=== PATIENT | female | born 1945 | race African-American/Black ===

== ENCOUNTER 2018-11-20 18:08 | Inpatient (IN) | payer MEDICARE, OTHER ==
[~2018-11-20] VITALS: Ht 162.6 cm; Wt 51.3 kg
[2018-11-20] MEDS ORDERED: ACCU-CHEK COMFORT CURVE STRIP VI ONE (19:45)
[2018-11-20] MEDS ORDERED: SODIUM CHLORIDE 0.9% 1,000 ML IV ONE (20:00)
[2018-11-20] MEDS ORDERED: InsuLIN REG 1unit/0.01ml Soln (100units/ml) IV ONE (20:00)
[2018-11-20 20:30] LABS: Hemoglobin 16.3 g/dL (12.2-16.2); Mean Corpuscular Hemoglobin 28.3 pg (28.0-32.0); Mean Corpuscular Hgb Conc. 32.6 g/dL (32.0-36.0); Mean Corpuscular Volume 86.6 fL (80.0-100.0); Red Blood Cells 5.77 10^6/uL (4.0-5.20); Red Cell Distribution Width 14.5 % (11.8-14.3); White Blood Cell 29.2 10^3/uL (4.4-10.8)
[2018-11-20 20:31] LABS: Basophils % (manual) 0 (0.0-2.0); Blast Cells 0; Eosinophils % (manual) 0 (0-7); Metamyelocytes % 0; Myelocytes % 0; Promyelocytes % 0; Reactive Lymphocytes 0
[2018-11-20 20:38] LABS: INR < 0.93 (0.9-1.15); Partial Thromboplastin Time 27.9 sec (23.64-32.05)
[2018-11-20 20:40] LABS: Albumin 4.2 g/dL (3.4-5.0); Anion Gap 31 (5-15); Blood Urea Nitrogen 29 mg/dL (7-18); Calcium 9.2 mg/dL (8.5-10.1); Chloride 85 mmol/L (98-107); Potassium 4.8 mmol/L (3.5-5.1); Sodium 123 mmol/L (136-145)
[2018-11-20 20:41] LABS: Band Neutrophils % (manual) 5; Lymphocytes % (manual) 9 (10.0-50.0); Monocytes % (manual) 7 (0-12)
[2018-11-20 20:42] LABS: Platelet Count (auto) 475 10^3/uL (140-450)
[2018-11-20 20:45] LABS: Lactic Acid w/Reflex 2.7 mmol/L (0.4-2.0)
[2018-11-20 20:48] LABS: Alkaline Phosphatase 231 U/L (45-117)
[2018-11-20 20:51] LABS: Alanine Aminotransferase 18 U/L (13-56); Aspartate Aminotransferase 14 U/L (15-37); BUN/Creatinine Ratio 13.6; Bilirubin, Total 0.5 mg/dL (0.2-1.0); GFR African American 29 mL/min; GFR Non-African American 24 mL/min; Total Protein 10.1 g/dL (6.4-8.2)
[2018-11-20 20:54] LABS: Carbon Dioxide 7 mmol/L (21-32); Glucose 835 mg/dL (74-106)
[2018-11-20] MEDS ORDERED: SODIUM CHLORIDE 0.9% 1,000 ML IV SCH (21:10)
[2018-11-20] MEDS ORDERED: SOD CHL 0.9%/ KCL 20MEQ 1,000 ML IV SCH (21:10)
[2018-11-20] MEDS ORDERED: InsuLIN R (HUMAN) 100 UNITS in SODIUM CHL 0.9% 99 ML IV SCH (21:10)
[2018-11-20] MEDS ORDERED: MAGNESIUM SULFATE 1GM/100ML 200 ML IV ONE (21:15)
[2018-11-20] MEDS ORDERED: cefTRIAXone 1GM/50ML D5W 50 ML IV ONE (21:30)
[2018-11-20] MEDS ORDERED: SODIUM BICARBONATE 8.4 % INJ 50ML VIAL IV ONE ×2 (21:45→23:30)
[2018-11-20] MEDS ORDERED: MORPHINE SULF INJ 2 MG/ML SYRINGE 1ML IV PRN (22:15)
[2018-11-20] MEDS ORDERED: LEVOFLOXACIN 250MG 50 ML IV ONE (22:15)
[2018-11-20] MEDS ORDERED: HYDROcodone-ACET 5/325MG TAB PO PRN (22:15)
[2018-11-20] MEDS ORDERED: DEXTROSE (50%) 50ML SYRG IV PRN (22:15)
[2018-11-20] MEDS ORDERED: ACETAMINOPHEN 325 MG TAB PO PRN (22:15)
[2018-11-20] MEDS ORDERED: NITROGLYCERIN 0.4 MG SL TAB SL PRN (22:15)
[2018-11-20 22:29] LABS: Magnesium 2.5 mg/dL (1.6-2.6); Phosphorus 5.5 mg/dL (2.5-4.90)
[2018-11-20] MEDS ORDERED: LORazepam 2MG/ML-1ML VIAL IV ONE (22:30)
[2018-11-20] MEDS ORDERED: HYDROmorphone HCL 2 MG/ML VL IV ONE (22:30)
[2018-11-20 22:34] LABS: Alcohol, Urine < 3.0 mg/dL (0-5); Amphetamine Screen, Urine NEGATIVE (NEGATIVE); Benzodiazephine Screen, Urine NEGATIVE (NEGATIVE); Cannabinoid Screen, Urine POSITIVE (NEGATIVE); Cocaine Screen, Urine NEGATIVE (NEGATIVE); Opiate Scree,Urine NEGATIVE (NEGATIVE); Phencyclidine Screen, Urine NEGATIVE (NEGATIVE)
[2018-11-20] MEDS: InsuLIN R (HUMAN) 100 UNITS in SODIUM CHL 0.9% 99 ML IV SCH (22:38)
[2018-11-20 22:41] LABS: Urine Bacteria NONE SEEN /hpf (None Seen); Urine Blood 2+ /uL (Negative); Urine Specific Gravity 1.021 (1.001-1.035); Urine WBC 225 /hpf (0 - 5)
[2018-11-20 22:50] LABS: Barbiturate Scree,Urine NEGATIVE (NEGATIVE)
[2018-11-20 22:56] LABS: BUN/Creatinine Ratio 16.9; Calcium 9.6 mg/dL (8.5-10.1)
[2018-11-20] MEDS: SODIUM CHLORIDE 0.9% 1,000 ML IV SCH (23:10)
[2018-11-21] MEDS: SODIUM CHLORIDE 0.9% 1,000 ML IV SCH (00:12)
[2018-11-21] MEDS ORDERED: ONDANSETRON HCL 4 MG/2 ML VIAL IV PRN (01:00)
[2018-11-21] MEDS ORDERED: SODIUM CHLORIDE 0.9% 1,000 ML IV SCH ×2 (02:12→04:12)
[2018-11-21] MEDS: InsuLIN R (HUMAN) 100 UNITS in SODIUM CHL 0.9% 99 ML IV SCH ×2 (03:18→05:52)
[2018-11-21] MEDS ORDERED: diphenhdrAMINE HCL 50 MG/1 ML VL IV ONE (03:30)
[2018-11-21] MEDS ORDERED: HALOPERIDOL LACTATE 5 MG/ML INJ VIAL IM ONE (03:30)
[2018-11-21] MEDS ORDERED: LORazepam 2MG/ML-1ML VIAL IV ONE (03:30)
[2018-11-21] MEDS ORDERED: SODIUM BICARBONATE 8.4 % INJ 50ML VIAL IV ONE (04:15)
[2018-11-21] MEDS ORDERED: SODIUM CHLORIDE 0.9% 500 ML IV ONE (07:30)
[2018-11-21] MEDS ORDERED: ACCU-CHEK COMFORT CURVE STRIP VI SCH (08:00)
[2018-11-21] MEDS ORDERED: DEXTROSE (50%) 50ML SYRG IV PRN ×2 (08:00→17:30)
[2018-11-21] MEDS: ACCU-CHEK COMFORT CURVE STRIP VI SCH ×6 (08:15→20:40)
[2018-11-21] MEDS: D5W/SOD CHL 0.45%/KCL 20MEQ 1,000 ML IV SCH ×3 (08:47→17:30)
[2018-11-21 08:56] LABS: Hemoglobin 13.5 g/dL (12.2-16.2); Mean Corpuscular Hemoglobin 27.9 pg (28.0-32.0); Mean Corpuscular Hgb Conc. 35.5 g/dL (32.0-36.0); Mean Corpuscular Volume 78.5 fL (80.0-100.0); Platelet Count (auto) 348 10^3/uL (140-450); Red Blood Cells 4.84 10^6/uL (4.0-5.20); Red Cell Distribution Width 13.6 % (11.8-14.3); White Blood Cell 19.3 10^3/uL (4.4-10.8)
[2018-11-21 09:04] LABS: Basophils % (manual) 0 (0.0-2.0); Blast Cells 0; Eosinophils % (manual) 0 (0-7); Metamyelocytes % 0; Myelocytes % 0; Promyelocytes % 0; Reactive Lymphocytes 0
[2018-11-21 09:12] LABS: Albumin 3.2 g/dL (3.4-5.0); BUN/Creatinine Ratio 18.4; Potassium 3.2 mmol/L (3.5-5.1)
[2018-11-21 09:27] LABS: Bilirubin, Total 0.4 mg/dL (0.2-1.0); Total Protein 7.5 g/dL (6.4-8.2)
[2018-11-21 13:25] LABS: BUN/Creatinine Ratio 18.2; Calcium 8.9 mg/dL (8.5-10.1); Potassium 3.6 mmol/L (3.5-5.1)
[2018-11-21] MEDS: PANTOPRAZOLE 40 MG TAB PO SCH (14:56)
[2018-11-21 15:19] LABS: Band Neutrophils % (manual) 3; Lymphocytes % (manual) 18 (10.0-50.0); Monocytes % (manual) 8 (0-12)
[2018-11-21 17:00] LABS: BUN/Creatinine Ratio 16.5; Calcium 8.7 mg/dL (8.5-10.1); Potassium 3.5 mmol/L (3.5-5.1)
[2018-11-21] MEDS ORDERED: INSULIN LANTUS (GLARGINE) 1 /0.01ml (100units/ml) SC ONE (17:30)
--- NOTE | 2018-11-21 20:30 | NUR ---
Telemetry admit from ER [facility] admitted to Telemetry unit after SBAR received. Patient oriented to Lakesha Vazquez, primary RN, unit, room, bed, and unit policies regarding patient care and visiting hours. Patient now on continuous telemetry monitoring, tele box # 17 and telemetry reading on arrival to unit is sinus tachycardia. Patient placed on bedside oxygen, weighed by bedscale and encouraged to call if they need something. All questions and concerns addressed, patient verbalized understanding.
[2018-11-21 20:40] VITALS: BP 108/68
[2018-11-21 20:45] VITALS: BP 108/66
[2018-11-21] MEDS: LEVOFLOXACIN 500MG 100 ML IV SCH (20:45)
[2018-11-21] MEDS: InsuLIN REG 1unit/0.01ml Soln (100units/ml) SC SCH (20:45)
[2018-11-21] MEDS ORDERED: LEVOFLOXACIN 250MG 50 ML IV SCH (21:00)
[2018-11-21] MEDS ORDERED: INSULIN LANTUS (GLARGINE) 1 /0.01ml (100units/ml) SC SCH (22:00)
[2018-11-21] MEDS: INSULIN LANTUS (GLARGINE) 1 /0.01ml (100units/ml) SC SCH (22:01)
[2018-11-21] MEDS: TEMAZEPAM 15 MG CAP PO PRN (22:29)
[2018-11-22] MEDS: InsuLIN REG 1unit/0.01ml Soln (100units/ml) SC SCH ×7 (00:09→22:00)
[2018-11-22] MEDS: ACCU-CHEK COMFORT CURVE STRIP VI SCH ×7 (00:09→22:02)
[2018-11-22] MEDS: DOCUSATE SOD 100 MG CAP PO PRN (00:10)
[2018-11-22 05:28] VITALS: BP 111/74
[2018-11-22] MEDS: D5W/SOD CHL 0.45%/KCL 20MEQ 1,000 ML IV SCH (06:50)
[2018-11-22] MEDS: INSULIN LANTUS (GLARGINE) 1 /0.01ml (100units/ml) SC SCH ×2 (06:50→22:02)
--- NOTE | 2018-11-22 07:10 | NUR ---
Care endorsed to Summer BLANCA.
[2018-11-22 07:13] LABS: Basophils # (auto) 0 uL; Basophils % (auto) 0.3 % (0.0-2.0); Eosinophils # (auto) 0.1 uL; Eosinophils % (auto) 0.3 % (0.0-7.0); Hematocrit 38.2 % (36.0-46.0); Hemoglobin 12.9 g/dL (12.2-16.2); Lymphocytes # (auto) 2.4 uL; Lymphocytes % (auto) 14.5 % (10.0-50.0); Mean Corpuscular Hemoglobin 28.3 pg (28.0-32.0); Mean Corpuscular Hgb Conc. 33.7 g/dL (32.0-36.0); Mean Corpuscular Volume 83.9 fL (80.0-100.0); Monocytes # (auto) 1.5 uL; Monocytes % (auto) 9.1 % (0.0-12.0); Neutrophils # (auto) 12.5 uL; Neutrophils % (auto) 75.8 % (37.0-80.0); Nucleated Red Blood Cells % 0.1 %; Platelet Count (auto) 290 10^3/uL (140-450); Red Blood Cells 4.56 10^6/uL (4.0-5.20); Red Cell Distribution Width 14.2 % (11.8-14.3); White Blood Cell 16.6 10^3/uL (4.4-10.8)
--- NOTE | 2018-11-22 07:25 | NUR ---
Opening Note Received report from manufacturing shift supervisor RN. Patient is resting in bed with eyes closed, easy to wake by calling name. Patient is alert and oriented x4. No signs or symptoms of distress noted at this time. Reviewed plan of care with patient, patient verbalized understanding. Bed in low and locked position, call light within reach. Will continue to monitor Q1 hour and PRN.
--- NOTE | 2018-11-22 08:25 | NUR ---
Urine sample collected and sent to lab
[2018-11-22 09:00] VITALS: BP 98/52
[2018-11-22 10:03] LABS: Potassium 3.4 mmol/L (3.5-5.1)
[2018-11-22 10:07] LABS: BUN/Creatinine Ratio 9.7
--- NOTE | 2018-11-22 10:27 | NUR ---
patient moved to room 298A
[2018-11-22] MEDS: PANTOPRAZOLE 40 MG TAB PO SCH (10:39)
[2018-11-22 13:00] VITALS: BP 103/59
--- NOTE | 2018-11-22 14:31 | NUR ---
Abdominal pain Patient states she is having abdominal pain from constipation. Per the patient she has not had a bowel movement since 11/18. Patient has received Colace PRN. Patient states the medication is not working for her and she would like a different medication. Will notify .
--- NOTE | 2018-11-22 14:45 | NUR ---
PT DECLINED P.T. BECAUSE OF STOMACH PAIN.
--- NOTE | 2018-11-22 15:11 | NUR ---
Dr. Armstrong at bedside Dr. Armstrong at bedside reviewing plan of care with patient.
[2018-11-22] MEDS ORDERED: FLEET ENEMA(ADULT) 135 ML PR ONE (15:15)
[2018-11-22] MEDS ORDERED: LACTULOSE 20Gm/30ML SOLN PO ONE (15:15)
--- NOTE | 2018-11-22 16:22 | NUR ---
re-assessment Ss consult placement eval faxed to [facility] ph:[phone] fx: [phone] Per Bettie [facility] has accepted to room 60 B and accepting MD is Dr. La. If pt discharges on the weekend please call [facility] to set up transport ph: [phone] or [facility]. Pt agrees to discharge plan to [facility]. Addendum: 11/22/18 at 1622 by Tarsha KERR Amended: Links added.
[2018-11-22] MEDS ORDERED: DEXTROSE (50%) 50ML SYRG IV PRN (17:00)
[2018-11-22 17:44] VITALS: BP 105/57
--- NOTE | 2018-11-22 17:51 | NUR ---
library monitor discontinued per MD orders Telemetry box sent back to [facility].
--- NOTE | 2018-11-22 19:23 | NUR ---
Closing Note Report given to mine shifter RN. No signs or symptoms of distress noted at this time.
--- NOTE | 2018-11-22 20:00 | NUR ---
Opening Shift Note Assumed care of patient, awake and alert. No S/S of distress/SOB or pain. Instructed on POC and to call for assist PRN, will continue to monitor for changes Q1hr and PRN.Complaining of uncomfortable with her catheter and pain, so discontinue as patient request ,said she is alert to herself now.
[2018-11-22] MEDS: LEVOFLOXACIN 500MG 100 ML IV SCH (21:01)
[2018-11-22 22:00] VITALS: BP 127/72
[2018-11-23] MEDS: TEMAZEPAM 15 MG CAP PO PRN ×2 (00:52→22:41)
[2018-11-23 05:00] VITALS: BP 112/76
[2018-11-23 06:23] LABS: Basophils # (auto) 0.1 uL; Basophils % (auto) 0.5 % (0.0-2.0); Eosinophils # (auto) 0 uL; Eosinophils % (auto) 0.4 % (0.0-7.0); Hematocrit 35.1 % (36.0-46.0); Hemoglobin 12.3 g/dL (12.2-16.2); Lymphocytes # (auto) 2.1 uL; Lymphocytes % (auto) 18.5 % (10.0-50.0); Mean Corpuscular Hemoglobin 28.1 pg (28.0-32.0); Mean Corpuscular Hgb Conc. 35.1 g/dL (32.0-36.0); Mean Corpuscular Volume 80.1 fL (80.0-100.0); Monocytes # (auto) 1.1 uL; Monocytes % (auto) 10.1 % (0.0-12.0); Neutrophils # (auto) 7.9 uL; Neutrophils % (auto) 70.5 % (37.0-80.0); Platelet Count (auto) 277 10^3/uL (140-450); Red Blood Cells 4.38 10^6/uL (4.0-5.20); Red Cell Distribution Width 13.9 % (11.8-14.3); White Blood Cell 11.1 10^3/uL (4.4-10.8)
[2018-11-23 06:32] LABS: Potassium 3.4 mmol/L (3.5-5.1)
[2018-11-23] MEDS: INSULIN LANTUS (GLARGINE) 1 /0.01ml (100units/ml) SC SCH ×2 (06:34→21:53)
[2018-11-23] MEDS: InsuLIN REG 1unit/0.01ml Soln (100units/ml) SC SCH ×4 (06:34→21:58)
[2018-11-23] MEDS: ACCU-CHEK COMFORT CURVE STRIP VI SCH ×4 (06:34→21:51)
--- NOTE | 2018-11-23 07:17 | NUR ---
Report given to Nancy Spears, patient is resting no distress.
--- NOTE | 2018-11-23 07:30 | NUR ---
RECEIVED REPORT FROM NIGHT NURSE. PATIENT RESTING IN BED, NO DISTRESS NOTED. WILL CONTINUE TO MONITOR.
[2018-11-23 09:00] VITALS: BP 99/55
[2018-11-23 10:01] LABS: BUN/Creatinine Ratio 10.4
[2018-11-23 10:02] LABS: Magnesium 2.1 mg/dL (1.6-2.6)
[2018-11-23] MEDS: PANTOPRAZOLE 40 MG TAB PO SCH (10:19)
[2018-11-23 10:31] LABS: Phosphorus 1.5 mg/dL (2.5-4.90)
[2018-11-23 13:00] VITALS: BP 125/54
--- NOTE | 2018-11-23 15:30 | NUR ---
PATIENT'S GRANDDAUGHTER ALICIA AT BEDSIDE. SHE STATED THAT SHE WANTS THE PATIENT TO COME HOME UPON DISCHARGE AND THAT THEY HAVE A [employer] MACHINE OPERATOR AT HOME. SHE STATED THAT THEY MAY NEED PHYSICAL THERAPY WHEN SHE GOES HOME. THEY DO NOT WANT THE PATIENT TO GO TO A SNF. THE PATIENT DOES NOT WANT TO GO TO A SNF UPON DISCHARGE.
[2018-11-23 16:41] VITALS: BP 111/74
[2018-11-23] MEDS: POLYETHYLENE GLYCOL 17 GM PWDR PO PRN (16:54)
--- NOTE | 2018-11-23 20:00 | NUR ---
Opening Shift Note Assumed care of patient, awake and alert. No S/S of distress/SOB or pain. Instructed on POC and to call for assist PRN, will continue to monitor for changes Q1hr and PRN.
[2018-11-23 22:00] VITALS: BP 122/69
[2018-11-24 05:00] VITALS: BP 124/76
[2018-11-24] MEDS: DOCUSATE SOD 100 MG CAP PO PRN (05:33)
[2018-11-24] MEDS: POLYETHYLENE GLYCOL 17 GM PWDR PO PRN (06:08)
--- NOTE | 2018-11-24 06:08 | NUR ---
Given her miralax constipation med. early due to patient is mad and she is saying she needs to have a bowel movement, though she had a big couples of bowel movement the other night.
[2018-11-24] MEDS: ACCU-CHEK COMFORT CURVE STRIP VI SCH ×4 (06:53→21:47)
[2018-11-24] MEDS: INSULIN LANTUS (GLARGINE) 1 /0.01ml (100units/ml) SC SCH ×2 (06:54→21:48)
[2018-11-24] MEDS: InsuLIN REG 1unit/0.01ml Soln (100units/ml) SC SCH ×4 (06:54→21:48)
--- NOTE | 2018-11-24 07:20 | NUR ---
Report given to Nancy Spears, patient is resting no distress.
--- NOTE | 2018-11-24 07:30 | NUR ---
RECEIVED REPORT FROM NIGHT NURSE. PATIENT RESTING IN BED, NO DISTRESS NOTED. WILL CONTINUE TO MONITOR.
[2018-11-24 09:00] VITALS: BP 97/66
[2018-11-24] MEDS: PANTOPRAZOLE 40 MG TAB PO SCH (10:30)
[2018-11-24] MEDS: LEVOFLOXACIN 500 MG TAB PO SCH (10:30)
--- NOTE | 2018-11-24 12:21 | NUR ---
Pt reports having increased pain and discomfort to her abdomen, pt has c/o constipation, pt requesting to get out of bed to walk at a later time Addendum: 11/24/18 at 1221 by Liss Mccollum PT Amended: Links added.
[2018-11-24 13:00] VITALS: BP 91/60
[2018-11-24] MEDS ORDERED: LACTULOSE 20Gm/30ML SOLN PO ONE (14:30)
--- NOTE | 2018-11-24 14:50 | NUR ---
NUTRITION ASSESSMENT NOTES Please refer to link notes of nutrition screen form filed under the intervention section of the plan of care for further details. Est. Needs: 1550 kcal to 1850 kcal (25-30 kcal/kgBW), 62 gms to 75 gms pro (1.0-1.2 gms/kgBW). Will continue to monitor pertinent labs and reassess nutrient need prn Thank you. Addendum: 11/24/18 at [address] Amended: Links added.
[2018-11-24 17:03] VITALS: BP 106/62
--- NOTE | 2018-11-24 20:00 | NUR ---
Opening Shift Note Assumed care of patient, awake and alert. No S/S of distress/SOB or pain. Instructed on POC and to call for assist PRN, will continue to monitor for changes Q1hr and PRN.Chatting with her co-patient.
[2018-11-24] MEDS: TEMAZEPAM 15 MG CAP PO PRN (21:58)
[2018-11-24 22:00] VITALS: BP 111/70
[2018-11-25 05:00] VITALS: BP 103/61
[2018-11-25] MEDS: INSULIN LANTUS (GLARGINE) 1 /0.01ml (100units/ml) SC SCH (06:07)
[2018-11-25] MEDS: ACCU-CHEK COMFORT CURVE STRIP VI SCH ×3 (06:08→17:08)
[2018-11-25] MEDS: InsuLIN REG 1unit/0.01ml Soln (100units/ml) SC SCH ×3 (06:08→17:00)
--- NOTE | 2018-11-25 07:07 | NUR ---
Report given to Nancy Spears,patient is resting no distress the whole night.
--- NOTE | 2018-11-25 07:30 | NUR ---
RECEIVED REPORT FROM NIGHT NURSE. PATIENT RESTING IN BED, NO DISTRESS NOTED. WILL CONTINUE TO MONITOR.
[2018-11-25] MEDS: POLYETHYLENE GLYCOL 17 GM PWDR PO PRN (08:23)
[2018-11-25 09:00] VITALS: BP 122/72
[2018-11-25] MEDS ORDERED: FLUCONAZOLE 100 MG TAB PO ONE (11:00)
[2018-11-25] MEDS: LEVOFLOXACIN 500 MG TAB PO SCH (11:08)
[2018-11-25] MEDS: PANTOPRAZOLE 40 MG TAB PO SCH (11:09)
--- NOTE | 2018-11-25 11:40 | NUR ---
ACCU-CHECK 409 AND THEN 412. SPOKE WITH DOCTOR CRESPO, ORDERS RECEIVED, WILL CARRY OUT.
[2018-11-25] MEDS ORDERED: HYDROcodone-ACET 5/325MG TAB PO PRN (12:00)
[2018-11-25] MEDS ORDERED: INSULIN LANTUS (GLARGINE) 1 /0.01ml (100units/ml) SC ONE (12:00)
[2018-11-25 13:00] VITALS: BP 113/75
--- NOTE | 2018-11-25 15:09 | NUR ---
ACCU-CHECK RECHECK 172
--- NOTE | 2018-11-25 16:39 | NUR ---
re-assessment Patients discharge plan has changed. Patient now wants to go home with home health. I informed patient of home health order and she referred me to her granddaughter Lauren. I called Lauren and read her a list of medicare providers. Per Lauren she has no preference. consult for PT, vitals and safety and medications management faxed to [facility] ph: [phone] fx: [phone] per Leisa [facility] has been accepted and service to start tomorrow 11/26/18. Pt agrees to discharge plan with [facility]. Addendum: 11/25/18 at 1643 by Tarsha KERR Amended: Links added.
[2018-11-25 16:53] VITALS: BP 109/51
--- NOTE | 2018-11-25 17:30 | NUR ---
FEMORAL 3 LUMEN LINE REMOVED. CATHETER TIP INTACT, PRESSURE DRESSING APPLIED. PATIENT TOLERATED IT WELL.
--- NOTE | 2018-11-25 20:31 | NUR ---
Discharge instructions given as ordered. Encourage to follow up with PMD as instructed. All questions and concerns addressed. Patient verbalized understanding. Medication reconciliation form completed and copy given to patient. Telemetry unit returned to [facility]. Patient taken to vehicle via wheelchair with all personal belongings, accompanied by staff and family member. No distress noted at time of departure.
== END 2018-11-25 20:31 | disposition home health service (06) | DRG 871 ==
LOC: ER 18:08 → TELE 18:09 → TELE-WESTW 11-21 20:26 → WEST WING 11-22 16:52
PROVIDERS: ADMIT Nurse Practitioner; ATTEND Internal Medicine
PROC: 06HY33Z Insertion of Infusion Device into Lower Vein, Percutaneous Approach (ICD-10-PCS; principal; 2018-11-21)
DX: A41.9 Sepsis, unspecified organism (principal); E11.10 Type 2 diabetes mellitus with ketoacidosis without coma; N17.0 Acute kidney failure with tubular necrosis; N39.0 Urinary tract infection, site not specified; J98.11 Atelectasis; E87.1 Hypo-osmolality and hyponatremia; E86.0 Dehydration; I70.0 Atherosclerosis of aorta; K59.00 Constipation, unspecified; B37.3 Candidiasis of vulva and vagina; I10 Essential (primary) hypertension; J20.9 Acute bronchitis, unspecified; Z88.0 Allergy status to penicillin; Z86.73 Personal history of transient ischemic attack (TIA), and cerebral infarction without residual deficits; Z88.8 Allergy status to other drugs, medicaments and biological substances; Z91.19 Patient's noncompliance with other medical treatment and regimen; Z79.899 Other long term (current) drug therapy
CPT/HCPCS: 36415; 36600; 51702; 71045; 73501; 80048; 80053; 80307; 81001; 82010; 82805; 82962; 83036; 83605; 83735; 83880; 83930; 84100; 84443; 84484; 85007; 85025; 85027; 85610; 85730; 87040; 87086; 93005; 96361; 96365; 96366; 96372; 96375; G0378; J0696; J1815; J1956; J2405

== ENCOUNTER 2018-12-03 23:27 | Inpatient (IN) | payer MEDICARE, OTHER ==
[~2018-12-03] VITALS: Ht 172.7 cm; Wt 68.6 kg
[2018-12-04 00:31] LABS: Hematocrit 41.7 % (36.0-46.0); Hemoglobin 14.5 g/dL (12.2-16.2); Mean Corpuscular Hemoglobin 28.1 pg (28.0-32.0); Mean Corpuscular Hgb Conc. 34.7 g/dL (32.0-36.0); Mean Corpuscular Volume 80.9 fL (80.0-100.0); Red Blood Cells 5.15 10^6/uL (4.0-5.20); Red Cell Distribution Width 14.5 % (11.8-14.3)
[2018-12-04 00:34] LABS: Band Neutrophils % (manual) 0; Basophils % (manual) 0 (0.0-2.0); Blast Cells 0; Eosinophils % (manual) 0 (0-7); Metamyelocytes % 0; Myelocytes % 0; Promyelocytes % 0; Reactive Lymphocytes 0
[2018-12-04 00:40] LABS: Lymphocytes % (manual) 4 (10.0-50.0); Monocytes % (manual) 4 (0-12)
[2018-12-04 00:41] LABS: Albumin 4.1 g/dL (3.4-5.0); Anion Gap 26 (5-15); BUN/Creatinine Ratio 16.3; Blood Urea Nitrogen 34 mg/dL (7-18); Calcium 10.5 mg/dL (8.5-10.1); Carbon Dioxide 12 mmol/L (21-32); Chloride 95 mmol/L (98-107); GFR African American 30 mL/min; GFR Non-African American 25 mL/min; Glucose 283 mg/dL (74-106); Potassium 3.5 mmol/L (3.5-5.1); Sodium 133 mmol/L (136-145)
[2018-12-04 00:43] LABS: Platelet Count (auto) 773 10^3/uL (140-450)
[2018-12-04 00:48] LABS: Alanine Aminotransferase 14 U/L (13-56); Alkaline Phosphatase 147 U/L (45-117); Aspartate Aminotransferase 5 U/L (15-37); Bilirubin, Total 0.7 mg/dL (0.2-1.0); Total Protein 8.9 g/dL (6.4-8.2)
[2018-12-04 02:38] LABS: Lactic Acid w/Reflex 3.1 mmol/L (0.4-2.0)
[2018-12-04] MEDS ORDERED: cefTRIAXone 1GM/50ML D5W 50 ML IV ONE (03:45)
[2018-12-04] MEDS ORDERED: SODIUM CHLORIDE 0.9% 1,000 ML IV ONE ×2 (03:48→04:00)
[2018-12-04] MEDS ORDERED: ONDANSETRON HCL 4 MG/2 ML VIAL IV ONE (04:00)
[2018-12-04] MEDS ORDERED: LEVOFLOXACIN 500MG 100 ML IV ONE ×2 (04:00→06:30)
[2018-12-04] MEDS ORDERED: InsuLIN REG 1unit/0.01ml Soln (100units/ml) IV ONE (04:00)
[2018-12-04] MEDS ORDERED: MORPHINE SULF INJ 2 MG/ML SYRINGE 1ML IV ONE (04:00)
[2018-12-04 04:58] LABS: Urine Bacteria NONE SEEN /hpf (None Seen); Urine Blood 1+ /uL (Negative); Urine WBC 105 /hpf (0 - 5)
[2018-12-04] MEDS ORDERED: InsuLIN R (HUMAN) 100 UNITS in SODIUM CHL 0.9% 99 ML IV SCH ×2 (06:08→08:52)
[2018-12-04 06:15] LABS: Albumin 3.3 g/dL (3.4-5.0); BUN/Creatinine Ratio 19.6; Calcium 9.2 mg/dL (8.5-10.1); Potassium 3.7 mmol/L (3.5-5.1)
[2018-12-04] MEDS ORDERED: MORPHINE SULF INJ 2 MG/ML SYRINGE 1ML IV PRN (06:15)
[2018-12-04] MEDS ORDERED: ONDANSETRON HCL 4 MG/2 ML VIAL IV PRN (06:15)
[2018-12-04] MEDS ORDERED: DEXTROSE (50%) 50ML SYRG IV PRN ×3 (06:15→18:45)
[2018-12-04] MEDS ORDERED: NITROGLYCERIN 0.4 MG SL TAB SL PRN (06:15)
[2018-12-04] MEDS ORDERED: ACETAMINOPHEN 325 MG TAB PO PRN (06:15)
[2018-12-04 06:18] LABS: Bilirubin, Total 0.7 mg/dL (0.2-1.0); Total Protein 7.9 g/dL (6.4-8.2)
[2018-12-04] MEDS ORDERED: InsuLIN REG 1unit/0.01ml Soln (100units/ml) ONE (06:26)
[2018-12-04 06:57] LABS: Basophils # (auto) 0.1 uL; Basophils % (auto) 0.7 % (0.0-2.0); Eosinophils # (auto) 0 uL; Hematocrit 41.1 % (36.0-46.0); Hemoglobin 14.2 g/dL (12.2-16.2); Lymphocytes # (auto) 1.8 uL; Lymphocytes % (auto) 8.3 % (10.0-50.0); Mean Corpuscular Hemoglobin 28.1 pg (28.0-32.0); Mean Corpuscular Hgb Conc. 34.4 g/dL (32.0-36.0); Mean Corpuscular Volume 81.8 fL (80.0-100.0); Monocytes # (auto) 1.6 uL; Monocytes % (auto) 7.5 % (0.0-12.0); Neutrophils # (auto) 18.2 uL; Neutrophils % (auto) 83.5 % (37.0-80.0); Nucleated Red Blood Cells % 0.2 %; Platelet Count (auto) 273 10^3/uL (140-450); Red Blood Cells 5.03 10^6/uL (4.0-5.20); Red Cell Distribution Width 14.6 % (11.8-14.3); White Blood Cell 21.8 10^3/uL (4.4-10.8)
[2018-12-04] MEDS ORDERED: SODIUM CHLORIDE 0.9% 1,000 ML IV SCH ×5 (08:52→14:52)
[2018-12-04] MEDS: ACCU-CHEK COMFORT CURVE STRIP VI SCH ×8 (09:00→20:56)
[2018-12-04] MEDS: PANTOPRAZOLE 40 MG TAB PO SCH (09:01)
[2018-12-04] MEDS: HYDROcodone-ACET 5/325MG TAB PO PRN ×2 (09:04→16:12)
[2018-12-04] MEDS ORDERED: LEVOFLOXACIN 500MG 100 ML IV SCH (10:00)
[2018-12-04] MEDS: D5W/SOD CHL 0.45% 1,000 ML IV SCH ×2 (10:36→17:48)
[2018-12-04 15:31] LABS: BUN/Creatinine Ratio 20.7; Calcium 8.8 mg/dL (8.5-10.1)
[2018-12-04 15:41] LABS: Potassium 2.9 mmol/L (3.5-5.1)
[2018-12-04] MEDS ORDERED: POTASSIUM EFFERVESENT TAB 25 MEQ PO ONE (15:45)
[2018-12-04] MEDS ORDERED: INSULIN LANTUS (GLARGINE) 1 /0.01ml (100units/ml) SC ONE (16:00)
[2018-12-04] MEDS: D5W/SOD CHL 0.45%/KCL 20MEQ 1,000 ML IV SCH ×2 (16:12→23:32)
[2018-12-04] MEDS: InsuLIN REG 1unit/0.01ml Soln (100units/ml) SC SCH (20:56)
[2018-12-04 21:00] VITALS: BP 128/74
[2018-12-04] MEDS: INSULIN LANTUS (GLARGINE) 1 /0.01ml (100units/ml) SC SCH (22:00)
[2018-12-05] MEDS: ACCU-CHEK COMFORT CURVE STRIP VI SCH ×5 (00:52→23:06)
--- NOTE | 2018-12-05 02:57 | NUR ---
assist to bsc no c/o discomfort call light within reach, bed alarm on for pts safety
[2018-12-05 05:00] VITALS: BP 140/59
[2018-12-05] MEDS: InsuLIN REG 1unit/0.01ml Soln (100units/ml) SC SCH ×5 (05:46→23:05)
[2018-12-05] MEDS: D5W/SOD CHL 0.45%/KCL 20MEQ 1,000 ML IV SCH (05:47)
[2018-12-05 06:13] LABS: Albumin 3.1 g/dL (3.4-5.0); Potassium 3.3 mmol/L (3.5-5.1)
[2018-12-05 06:14] LABS: Basophils # (auto) 0.1 uL; Eosinophils # (auto) 0 uL; Lymphocytes # (auto) 1.8 uL; Monocytes # (auto) 0.9 uL; Neutrophils # (auto) 9.9 uL; White Blood Cell 12.7 10^3/uL (4.4-10.8)
[2018-12-05 06:16] LABS: Basophils % (auto) 0.7 % (0.0-2.0); Eosinophils % (auto) 0.3 % (0.0-7.0); Hematocrit 34.9 % (36.0-46.0); Hemoglobin 12.4 g/dL (12.2-16.2); Lymphocytes % (auto) 14.2 % (10.0-50.0); Mean Corpuscular Hemoglobin 28.8 pg (28.0-32.0); Mean Corpuscular Hgb Conc. 35.5 g/dL (32.0-36.0); Monocytes % (auto) 6.9 % (0.0-12.0); Neutrophils % (auto) 77.9 % (37.0-80.0); Platelet Count (auto) 555 10^3/uL (140-450); Red Cell Distribution Width 14.9 % (11.8-14.3)
[2018-12-05 06:18] LABS: % Iron Saturation 37.4 % (15-50)
[2018-12-05 06:19] LABS: BUN/Creatinine Ratio 15.1; Bilirubin, Total 0.8 mg/dL (0.2-1.0); Calcium 9.3 mg/dL (8.5-10.1); Total Protein 7.2 g/dL (6.4-8.2)
[2018-12-05 06:30] LABS: Ferritin 313.4 ng/mL (10-322); Folate (Folic Acid) 11.75 ng/mL (5.38-24)
[2018-12-05] MEDS ORDERED: METF-370 PO (06:35)
[2018-12-05] MEDS ORDERED: MONT10TA34 PO (06:38)
[2018-12-05] MEDS ORDERED: ONDA-155 PO (06:40)
[2018-12-05] MEDS ORDERED: OXY5T PO (06:44)
--- NOTE | 2018-12-05 07:13 | NUR ---
REPORT GIVEN TO AM NURSE POC REVIEWED
[2018-12-05 08:03] VITALS: BP 128/78
--- NOTE | 2018-12-05 08:20 | NUR ---
PT RESTING IN BED. PT REPORTS 10/10 PAIN IN ABDOMEN. WILL CHECK PT PRN PAIN MEDICATIONS. PT ENCOURAGED TO USE CALL LIGHT PRN, WILL CONTINUE TO MONITOR.
--- NOTE | 2018-12-05 08:52 | NUR ---
PT REPORTS 10/10 PAIN IN ABDOMEN. PT REFUSED PRN NORCO. PT REPORTS, "IT DOESN'T DO ANYTHING FOR ME, BUT DILAUDID WORKS." NO PRN DILAUDID AVAILABLE AT THIS TIME, WILL CONTINUE TO MONITOR.
[2018-12-05] MEDS: LEVOFLOXACIN 500MG 100 ML IV SCH (09:22)
[2018-12-05] MEDS: ASPirin-EC 81 mg tab PO SCH (09:22)
[2018-12-05] MEDS: PANTOPRAZOLE 40 MG TAB PO SCH ×2 (09:23→22:19)
[2018-12-05] MEDS: INSULIN LANTUS (GLARGINE) 1 /0.01ml (100units/ml) SC SCH ×2 (09:24→23:05)
[2018-12-05] MEDS ORDERED: POTASSIUM CHL 20 Meq TABLET PO ONE (09:30)
--- NOTE | 2018-12-05 11:08 | NUR ---
PT REPORTS HER GRAND DAUGHTER KIA IS NOT TO BE ALLOWED TO VISIT PATIENT. PT REPORTS HER GRAND DAUGHTER STEALS FROM HER. CHARGE NURSE AWARE. WILL CONTINUE TO MONITOR.
--- NOTE | 2018-12-05 11:29 | NUR ---
PT REPORTS ONGOING CHEST PAIN, ABDOMINAL PAIN AND PAIN IN THROAT. ASKED PT HOW LONG SHE HAS HAD CHEST PAIN FOR. PT REPORTS SHE HAS HAD CHEST AND ABDOMINAL PAIN SINCE SHE WAS AT HOME, BEFORE ADMISSION. OFFERED PT PRN NORCO AGAIN. PT REFUSED.
--- NOTE | 2018-12-05 12:00 | NUR ---
TELE STRIP REPORTS HR 56 BPM. REASSESSED HR, HR 99 BPM, WILL CONTINUE TO MONITOR.
[2018-12-05] MEDS ORDERED: SUCRALFATE 1 GM/10 ML ORAL SUSP PO ONE (12:30)
[2018-12-05] MEDS ORDERED: POTASSIUM PHOSPHATE 44 MEQ in D5W 5% 250 ML IV ONE (12:30)
[2018-12-05] MEDS ORDERED: DULoxetine HCL 30 MG CAP PO ONE (12:30)
--- NOTE | 2018-12-05 12:41 | NUR ---
DR GARCIA REPORTS SHE SAW PATIENT. REPORTS SHE ORDERED DILAUDID, ECHO, AND CYMBALTA. WILL CONTINUE TO MONITOR.
[2018-12-05 13:00] VITALS: BP 100/60
[2018-12-05] MEDS: HYDROmorphone HCL 2 MG/ML VL IV PRN ×2 (14:10→22:35)
[2018-12-05 16:45] VITALS: BP 115/65
--- NOTE | 2018-12-05 17:30 | NUR ---
PT REPORTS SHE IS NAUSEOUS AND HAS NOT BEEN ABLE TO EAT BREAKFAST OR LUNCH. 1800 INSULIN HELD AND PRN NAUSEA MEDICATION GIVEN. PT REPORTED EARLIER SHE WAS UNABLE TO EAT BECAUSE OF PAIN IN THROAT. PRN PAIN MEDICATION WAS GIVEN EARLIER WHEN REPORTED.
[2018-12-05] MEDS: SUCRALFATE 1 GM/10 ML ORAL SUSP PO SCH ×2 (17:36→22:18)
[2018-12-05 21:30] VITALS: BP 117/67
[2018-12-05] MEDS: TEMAZEPAM 15 MG CAP PO PRN (22:20)
[2018-12-06 05:00] VITALS: BP 96/55
[2018-12-06] MEDS: InsuLIN REG 1unit/0.01ml Soln (100units/ml) SC SCH ×4 (06:00→22:00)
[2018-12-06] MEDS: ACCU-CHEK COMFORT CURVE STRIP VI SCH ×4 (06:00→22:06)
[2018-12-06] MEDS: SUCRALFATE 1 GM/10 ML ORAL SUSP PO SCH ×4 (06:03→22:27)
--- NOTE | 2018-12-06 06:50 | NUR ---
Low Glucose At 0600 blood glucose was 51. Pt asymptomatic. Provided with orange juice and crackers. Recheck at 0640 was 114.
[2018-12-06 07:30] LABS: Basophils # (auto) 0.1 uL; Hemoglobin 10.8 g/dL (12.2-16.2); Lymphocytes # (auto) 2.4 uL; Mean Corpuscular Hgb Conc. 36.6 g/dL (32.0-36.0); Nucleated Red Blood Cells % 0.1 %
[2018-12-06 07:32] LABS: Basophils % (auto) 0.9 % (0.0-2.0); Eosinophils # (auto) 0.1 uL; Eosinophils % (auto) 0.7 % (0.0-7.0); Hematocrit 29.5 % (36.0-46.0); Lymphocytes % (auto) 26.2 % (10.0-50.0); Mean Corpuscular Hemoglobin 29.3 pg (28.0-32.0); Mean Corpuscular Volume 80.1 fL (80.0-100.0); Monocytes % (auto) 10.5 % (0.0-12.0); Neutrophils # (auto) 5.7 uL; Neutrophils % (auto) 61.7 % (37.0-80.0); Platelet Count (auto) 408 10^3/uL (140-450); Red Blood Cells 3.69 10^6/uL (4.0-5.20); Red Cell Distribution Width 14.5 % (11.8-14.3); White Blood Cell 9.2 10^3/uL (4.4-10.8)
[2018-12-06 09:00] VITALS: BP 90/58
--- NOTE | 2018-12-06 09:27 | NUR ---
[employer] REPORTS PT BP 90/58, HR 94. RECHECKED BP AND HR. BLOOD PRESSURE 93/53, HR 91. SAW DR CRESPO AT NURSING STATION, NOTIFIED MD OF BLOOD PRESSURE, MD AWARE, NO NEW ORDERS. PT REPORTED SHE, "NORMALLY HAS LOW BLOOD PRESSURE."
[2018-12-06] MEDS: INSULIN LANTUS (GLARGINE) 1 /0.01ml (100units/ml) SC SCH ×2 (10:00→22:00)
[2018-12-06] MEDS: LEVOFLOXACIN 500MG 100 ML IV SCH (10:24)
[2018-12-06] MEDS: ASPirin-EC 81 mg tab PO SCH (10:25)
[2018-12-06] MEDS: DULoxetine HCL 30 MG CAP PO SCH (10:25)
[2018-12-06] MEDS: PANTOPRAZOLE 40 MG TAB PO SCH ×2 (10:26→22:27)
[2018-12-06] MEDS: HYDROmorphone HCL 2 MG/ML VL IV PRN ×3 (10:27→22:28)
[2018-12-06] MEDS ORDERED: SODIUM CHLORIDE 0.9% 1,000 ML IV ONE (11:30)
[2018-12-06] MEDS ORDERED: DEXTROSE (50%) 50ML SYRG IV PRN (11:45)
[2018-12-06 13:00] VITALS: BP 99/64
[2018-12-06 16:37] VITALS: BP 123/78
--- NOTE | 2018-12-06 19:13 | NUR ---
Opening Shift Note Assumed care of patient, awake and alert. No S/S of distress/SOB or pain. Pt currently in bed with the rails up x2. The bed is locked in the lowest position and the call light is within reach. Instructed on POC and to call for assist as needed. Will continue to monitor.
[2018-12-06 21:41] VITALS: BP 102/68
[2018-12-06] MEDS: TEMAZEPAM 15 MG CAP PO PRN (22:27)
[2018-12-07] MEDS: HYDROmorphone HCL 2 MG/ML VL IV PRN ×3 (03:33→23:31)
[2018-12-07 05:14] VITALS: BP 139/76
[2018-12-07 06:09] LABS: Basophils # (auto) 0.1 uL; Basophils % (auto) 1.3 % (0.0-2.0); Eosinophils # (auto) 0.2 uL; Eosinophils % (auto) 1.8 % (0.0-7.0); Hematocrit 30.8 % (36.0-46.0); Hemoglobin 10.6 g/dL (12.2-16.2); Lymphocytes # (auto) 2.3 uL; Lymphocytes % (auto) 27.3 % (10.0-50.0); Mean Corpuscular Hemoglobin 28.6 pg (28.0-32.0); Mean Corpuscular Hgb Conc. 34.5 g/dL (32.0-36.0); Mean Corpuscular Volume 82.9 fL (80.0-100.0); Monocytes # (auto) 0.9 uL; Monocytes % (auto) 10.7 % (0.0-12.0); Neutrophils # (auto) 4.9 uL; Neutrophils % (auto) 58.9 % (37.0-80.0); Nucleated Red Blood Cells % 0.1 %; Platelet Count (auto) 374 10^3/uL (140-450); Red Blood Cells 3.72 10^6/uL (4.0-5.20); Red Cell Distribution Width 14.9 % (11.8-14.3); White Blood Cell 8.3 10^3/uL (4.4-10.8)
[2018-12-07] MEDS: InsuLIN REG 1unit/0.01ml Soln (100units/ml) SC SCH ×4 (06:11→22:15)
[2018-12-07] MEDS: ACCU-CHEK COMFORT CURVE STRIP VI SCH ×4 (06:11→22:14)
[2018-12-07] MEDS: SUCRALFATE 1 GM/10 ML ORAL SUSP PO SCH ×4 (06:11→22:13)
[2018-12-07 08:00] VITALS: BP 111/74
[2018-12-07 09:00] VITALS: BP 111/74
[2018-12-07] MEDS: LEVOFLOXACIN 500MG 100 ML IV SCH (09:46)
[2018-12-07] MEDS: PANTOPRAZOLE 40 MG TAB PO SCH ×2 (09:47→22:14)
[2018-12-07] MEDS: ASPirin-EC 81 mg tab PO SCH (09:47)
[2018-12-07] MEDS: DULoxetine HCL 30 MG CAP PO SCH (09:47)
[2018-12-07] MEDS ORDERED: INSULIN LANTUS (GLARGINE) 1 /0.01ml (100units/ml) SC SCH (10:00)
--- NOTE | 2018-12-07 10:13 | NUR ---
GWENDOLYN SPOKE WITH DR. SHANE REGARDING HAVING A MIDLINE. THE PATIENT IS AN EXTREMELY HARD STICK AND HAD A LEFT EJ INSERTED ON 12/04. THE LINE IS NOW LEAKING AND CANNOT BE SAVED. THE PATIENT PREFERS HAVING A MIDLINE. SHE DOES NOT WANT TO KEEP BEING "STUCK". WILL PLACE ORDER AND CONTINUE TO MONITOR.
[2018-12-07 13:00] VITALS: BP 102/59
[2018-12-07 17:00] VITALS: BP 104/56
--- NOTE | 2018-12-07 19:20 | NUR ---
Opening Shift Note Assumed care of patient, awake and alert. No S/S of distress/SOB. Instructed on POC and to call for assist PRN. Bed in lowest locked position, call light within reach, side rails up x2, fall precautions in place. Will continue to monitor for changes Q1hr and PRN.
[2018-12-07 22:11] VITALS: BP 106/69
[2018-12-07] MEDS: INSULIN LANTUS (GLARGINE) 1 /0.01ml (100units/ml) SC SCH (22:14)
--- NOTE | 2018-12-07 23:15 | NUR ---
IV insertion IV access obtained, via clean sterile technique by inserting 24 gauge catheter at left forearm after attempt(s). IV secured properly. No trauma to site. Patient tolerated procedure well.
[2018-12-08] MEDS: TEMAZEPAM 15 MG CAP PO PRN ×2 (00:13→23:15)
[2018-12-08] MEDS: HYDROmorphone HCL 2 MG/ML VL IV PRN ×5 (03:45→21:38)
[2018-12-08 05:43] VITALS: BP 125/73
[2018-12-08 06:23] LABS: Basophils # (auto) 0.1 uL; Basophils % (auto) 1.2 % (0.0-2.0); Eosinophils # (auto) 0.3 uL; Eosinophils % (auto) 3.3 % (0.0-7.0); Hematocrit 29.9 % (36.0-46.0); Hemoglobin 10.3 g/dL (12.2-16.2); Lymphocytes # (auto) 3.3 uL; Lymphocytes % (auto) 39.6 % (10.0-50.0); Mean Corpuscular Hemoglobin 28.7 pg (28.0-32.0); Mean Corpuscular Hgb Conc. 34.4 g/dL (32.0-36.0); Mean Corpuscular Volume 83.6 fL (80.0-100.0); Monocytes # (auto) 0.8 uL; Monocytes % (auto) 9.5 % (0.0-12.0); Neutrophils # (auto) 3.9 uL; Neutrophils % (auto) 46.4 % (37.0-80.0); Platelet Count (auto) 377 10^3/uL (140-450); Red Blood Cells 3.58 10^6/uL (4.0-5.20); Red Cell Distribution Width 15.2 % (11.8-14.3); White Blood Cell 8.3 10^3/uL (4.4-10.8)
[2018-12-08 06:29] LABS: Potassium 4.1 mmol/L (3.5-5.1)
[2018-12-08 06:36] LABS: Albumin 2.4 g/dL (3.4-5.0); BUN/Creatinine Ratio 11.4; Bilirubin, Total 0.3 mg/dL (0.2-1.0); Total Protein 5.9 g/dL (6.4-8.2)
[2018-12-08] MEDS: ACCU-CHEK COMFORT CURVE STRIP VI SCH ×4 (06:59→21:37)
[2018-12-08] MEDS: SUCRALFATE 1 GM/10 ML ORAL SUSP PO SCH ×4 (06:59→21:37)
[2018-12-08] MEDS: InsuLIN REG 1unit/0.01ml Soln (100units/ml) SC SCH ×4 (07:00→21:38)
[2018-12-08] MEDS: INSULIN LANTUS (GLARGINE) 1 /0.01ml (100units/ml) SC SCH ×2 (07:00→21:37)
[2018-12-08 08:00] VITALS: BP 100/67
[2018-12-08 08:30] VITALS: BP 100/67
[2018-12-08] MEDS: LEVOFLOXACIN 500MG 100 ML IV SCH (09:47)
[2018-12-08] MEDS: DULoxetine HCL 30 MG CAP PO SCH (09:47)
[2018-12-08] MEDS: PANTOPRAZOLE 40 MG TAB PO SCH ×2 (09:48→21:37)
[2018-12-08] MEDS: ASPirin-EC 81 mg tab PO SCH (09:48)
[2018-12-08] MEDS: Glucerna Carbsteady SHAKE Vanilla 8oz PO SCH ×2 (11:43→18:00)
[2018-12-08 12:34] VITALS: BP 104/64
[2018-12-08 16:38] VITALS: BP 119/73
--- NOTE | 2018-12-08 19:20 | NUR ---
Opening Shift Note Assumed care of patient, awake and alert. No S/S of distress/SOB or pain. Instructed on POC and to call for assist PRN. Bed in lowest locked position, call light within reach, side rails up x2, fall precautions in place. Will continue to monitor for changes Q1hr and PRN.
[2018-12-08 21:47] VITALS: BP 106/68
[2018-12-09] MEDS: HYDROmorphone HCL 2 MG/ML VL IV PRN ×3 (02:33→10:59)
[2018-12-09 04:47] VITALS: BP 124/73
[2018-12-09 05:48] LABS: Basophils # (auto) 0.1 uL; Eosinophils # (auto) 0.3 uL; Eosinophils % (auto) 3.9 % (0.0-7.0); Hematocrit 30.6 % (36.0-46.0); Hemoglobin 10.7 g/dL (12.2-16.2); Lymphocytes # (auto) 3.1 uL; Lymphocytes % (auto) 34.8 % (10.0-50.0); Mean Corpuscular Hgb Conc. 34.8 g/dL (32.0-36.0); Mean Corpuscular Volume 83.4 fL (80.0-100.0); Monocytes # (auto) 0.8 uL; Neutrophils # (auto) 4.5 uL; Neutrophils % (auto) 51.3 % (37.0-80.0); Platelet Count (auto) 404 10^3/uL (140-450); Red Blood Cells 3.67 10^6/uL (4.0-5.20); Red Cell Distribution Width 15.3 % (11.8-14.3); White Blood Cell 8.8 10^3/uL (4.4-10.8)
[2018-12-09 06:08] LABS: Calcium 9.5 mg/dL (8.5-10.1); Potassium 4.3 mmol/L (3.5-5.1)
[2018-12-09 06:10] LABS: BUN/Creatinine Ratio 15.3
[2018-12-09] MEDS: ACCU-CHEK COMFORT CURVE STRIP VI SCH ×4 (06:37→19:31)
[2018-12-09] MEDS: InsuLIN REG 1unit/0.01ml Soln (100units/ml) SC SCH ×4 (06:37→19:31)
[2018-12-09] MEDS: SUCRALFATE 1 GM/10 ML ORAL SUSP PO SCH ×3 (06:37→17:00)
[2018-12-09] MEDS: INSULIN LANTUS (GLARGINE) 1 /0.01ml (100units/ml) SC SCH (06:37)
--- NOTE | 2018-12-09 07:00 | NUR ---
Opening Shift Note Assumed care of the patient from the ceramic tile installer RN. The patient is A&Ox4, no signs or symptoms of distress. Educated the patient on POC and patient verbalized understanding. The patient's call light is within reach and bed is in the lowest, locked position. Will round hourly and continue to monitor.
[2018-12-09] MEDS: Glucerna Carbsteady SHAKE Vanilla 8oz PO SCH ×3 (07:39→18:08)
[2018-12-09 09:00] VITALS: BP 123/72
--- NOTE | 2018-12-09 09:31 | NUR ---
Per consult for Home Health safety evaluation, vitals, and medication management. Contacted [facility] the [facility] and faxed medical records Ph: ( [phone]) Fax: ). . Per Leisa from [facility] they will resume service for Pt and will be seen within 48hrs upon d/c. Addendum: 12/11/18 at 0934 by MICKIE HUGHES Amended: Links added.
[2018-12-09] MEDS: LEVOFLOXACIN 500MG 100 ML IV SCH (09:52)
[2018-12-09] MEDS: DULoxetine HCL 30 MG CAP PO SCH (09:53)
[2018-12-09] MEDS: PANTOPRAZOLE 40 MG TAB PO SCH (09:53)
[2018-12-09] MEDS: ASPirin-EC 81 mg tab PO SCH (09:53)
[2018-12-09] MEDS ORDERED: FLUCONAZOLE 100 MG TAB PO ONE (11:15)
[2018-12-09] MEDS ORDERED: MORPHINE SULF INJ 2 MG/ML SYRINGE 1ML IV PRN (11:15)
[2018-12-09 13:00] VITALS: BP 113/64
[2018-12-09 17:00] VITALS: BP 108/64
== END 2018-12-09 19:00 | disposition home or self-care (01) | DRG 871 ==
LOC: EDBD 23:27 → ER 23:30 → TELE 23:31 → TELE-WESTW 12-04 21:05
PROVIDERS: ADMIT Nurse Practitioner; ATTEND Internal Medicine
DX: A41.9 Sepsis, unspecified organism (principal); E11.10 Type 2 diabetes mellitus with ketoacidosis without coma; N17.0 Acute kidney failure with tubular necrosis; N39.0 Urinary tract infection, site not specified; F11.20 Opioid dependence, uncomplicated; E86.0 Dehydration; E11.40 Type 2 diabetes mellitus with diabetic neuropathy, unspecified; K21.9 Gastro-esophageal reflux disease without esophagitis; B37.3 Candidiasis of vulva and vagina; G89.29 Other chronic pain; E11.649 Type 2 diabetes mellitus with hypoglycemia without coma; F12.90 Cannabis use, unspecified, uncomplicated; I10 Essential (primary) hypertension; J40 Bronchitis, not specified as acute or chronic; D47.3 Essential (hemorrhagic) thrombocythemia; Z85.6 Personal history of leukemia; Z86.73 Personal history of transient ischemic attack (TIA), and cerebral infarction without residual deficits; Z88.0 Allergy status to penicillin; Z93.3 Colostomy status; Z79.899 Other long term (current) drug therapy
CPT/HCPCS: 36415; 36600; 71045; 74018; 80048; 80053; 81001; 82010; 82607; 82728; 82746; 82805; 82962; 83036; 83540; 83550; 83605; 83615; 83690; 83880; 83930; 84100; 84484; 85007; 85025; 85027; 87040; 87081; 87086; 93005; 93306; 96361; 96365; 96375; G0378; J1815; J1956; J2405; J7060